=== PATIENT | female | born 1990 | race Caucasian/White ===

== ENCOUNTER 2017-04-22 18:06 | Emergency (ER) | payer OTHER, SELFPAY ==
[2017-04-22] MEDS ORDERED: AMOXicillin 250 MG CAP ONE ×2 (18:53)
== END 2017-04-22 18:59 | disposition home or self-care (01) ==
LOC: BURERS 18:06
DX: H65.92 Unspecified nonsuppurative otitis media, left ear (principal); K02.9 Dental caries, unspecified; F32.9 Major depressive disorder, single episode, unspecified; F17.210 Nicotine dependence, cigarettes, uncomplicated
CPT/HCPCS: 99282

== ENCOUNTER 2019-04-19 12:35 | Emergency (ER) | payer SELFPAY ==
[2019-04-19] MEDS ORDERED: Lidocaine 2% PF 5 ML VIAL ONE (12:56)
== END 2019-04-19 13:34 | disposition home or self-care (01) ==
LOC: BURERS 12:35
DX: N76.0 Acute vaginitis (principal); F41.9 Anxiety disorder, unspecified; F32.9 Major depressive disorder, single episode, unspecified; F32.81 Premenstrual dysphoric disorder; F17.210 Nicotine dependence, cigarettes, uncomplicated
CPT/HCPCS: 10060; J2001